=== PATIENT | male | born 1960 | race Caucasian/White ===

== ENCOUNTER 2018-03-20 09:05 | Day surgery (SDC) | payer MEDICARE ==
[~2018-03-20 09:05] MED LIST: ACETAMINOPHEN 1,000 MG/100 ML BTL IV ONE; FAMOTIDINE 20MG TABLET PO ONE; MECLIZINE 25 MG TABLET PO ONE; METOCLOPRAMIDE 10 MG TABLET PO ONE; VANCOMYCIN HCL 1,000 MG in DEXTROSE 5 % IN WATER 250 ML IVPB ONE
[2018-03-20] MEDS ORDERED: MIDAZOLAM HCL 2MG/2ML VIAL IV ONE (09:06)
[2018-03-20] MEDS ORDERED: HYDROMORPHONE HCL 2 MG/ML VIAL IV ONE (09:06)
[2018-03-20] MEDS ORDERED: PROPOFOL 10 MG/ML VIAL IV ONE (09:06)
[2018-03-20] MEDS ORDERED: BUPIVACAINE 0.5% W/EPI MPF 30 ML VIAL IVP ONE (09:06)
[2018-03-20] MEDS ORDERED: LIDOCAINE 1% MDV (10MG/ML) 20ML VIAL SQ ONE (09:06)
[2018-03-20] MEDS ORDERED: *PACU ONLY* KETAMINE HCL 10 MG/ML (20ML) VIAL IV ONE (09:06)
[2018-03-20] MEDS ORDERED: FENTANYL PF 100MCG/2ML VIAL IV ONE (09:06)
[2018-03-20] MEDS ORDERED: LIDOCAINE 1% W/EPI 1:200,000 MPF 30ML SQ ONE (09:06)
--- NOTE | 2018-03-20 16:31 | Operative Note - Ferro ---
DATE OF SURGERY: 03/20/18 PREOPERATIVE DIAGNOSES: 1. 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 2. SPINAL CORD STIMULATOR INTERNAL TWO-LEAD MEDTRONIC WITH BATTERY DEPLETION. OPERATION: FLUOROSCOPICALLY-GUIDED INCISION, SUBCUTANEOUS DISSECTION REMOVAL AND REPLACEMENT OF AN INTERNAL PULSE GENERATOR BATTERY COMBINATION AT LEFT POSTERIOR GLUTEAL MARGIN. SURGEON: DARIN VIGIL D.O. ANESTHESIA: LOCAL SEDATION. ANESTHESIA PROVIDER: BOBY HAYNES CRNA INDICATION: This patient presents with a two-lead spinal cord stimulator internal generator. Over the last number of months, there has been malfunction with eventual disruption of stimulation patterns. Assessment of the generator by way of computer evaluation demonstrated battery depletion and failure. He is here for battery replacement. PROCEDURE: Intravenous line, vital sign monitoring, IV sedation, prepped and draped sterile technique. The spinal cord stimulator internal generator at the left posterior gluteal margin incisional site identified, marked, infiltrated, incision made, and subcutaneous dissection was conducted to the pulse generator , which was exteriorized and then from the indwelling leads. A new generator Med[employer]onic Programmable Rechargeable was then placed onto the field and interfaced with the indwelling leads. Antibiotic irrigation. Bovie for hemostasis. The generator was placed into the existing pouch, secured to the posterior fascia with nonabsorbable suture, and then the incision was closed with STRATAFIX 2-0 for the fascia and 3-0 subcuticular. The patient was transported to the Recovery Room stable after the Dermabond dressing was placed to interface the incisional lines. He was transported stable, no side-effects from the procedure or the sedation. When fully awake and alert, complex programming was then performed reconfirming stimulation patterns. He was prepared for discharge. DISCHARGE INSTRUCTIONS: 1. Sites will remain clean and dry. No showering or bathing in any way that would disrupt dressings. If it happens, contact the clinic. 2. Standard medications resumed including Levaquin, the antibiotic, 500 mg once a day for 14 days. 3. The office will contact the patient at home in the next 24-48 hours to discuss an appointment in 7-10 days to evaluate the incisional site. Until then , he is to keep his activities low. He was then discharged. cc: Dr. Kaden Aragon JOB NUMBER: [id number] [facility]
== END 2018-03-20 14:05 | disposition home or self-care (01) ==
LOC: SUR 09:05
PROVIDERS: ATTEND Pain Medicine Interventional Pain Medicine
DX: M96.1 Postlaminectomy syndrome, not elsewhere classified (principal); M54.16 Radiculopathy, lumbar region; M54.17 Radiculopathy, lumbosacral region; R51 Headache
CPT/HCPCS: 63685; 00300; 85002; J3370; J3010; J1170; C1787; C1820; J7060

== ENCOUNTER 2018-10-17 07:32 | Day surgery (SDC) | payer MEDICARE ==
[~2018-10-17 07:32] MED LIST changes: -FAMOTIDINE 20MG TABLET PO ONE; -MECLIZINE 25 MG TABLET PO ONE; -METOCLOPRAMIDE 10 MG TABLET PO ONE; -VANCOMYCIN HCL 1,000 MG in DEXTROSE 5 % IN WATER 250 ML IVPB ONE
[2018-10-17] MEDS ORDERED: HYDROCODONE/APAP 7.5/325MG TABLET PO ONE (07:33)
[2018-10-17] MEDS ORDERED: SEVOFLURANE 250 ML INH ONE (07:33)
[2018-10-17] MEDS ORDERED: PROPOFOL 10 MG/ML VIAL IV ONE (07:33)
[2018-10-17] MEDS ORDERED: KETOROLAC 30 MG/ML VIAL IVP ONE (07:33)
[2018-10-17] MEDS ORDERED: KETAMINE HCL 100MG/1ML VIAL INJ ONE (07:33)
[2018-10-17] MEDS ORDERED: LIDOCAINE 2% MDV (20MG/ML) 20ML VIAL IV ONE (07:33)
--- NOTE | 2018-10-18 09:50 | Operative Note ---
DATE OF SURGERY: 10/17/2018 Surgeon: Yoav Mahmood DO PREOPERATIVE DIAGNOSIS: Trigger finger of the right little finger. POSTOPERATIVE DIAGNOSIS: Trigger finger of the right little finger. OPERATION: Tenotomy A1 larisa of right little finger using 3.5 loop magnification. DESCRIPTION OF PROCEDURE: This 58-year-old male was taken to the operating room and placed in the supine position on the operating room table. General anesthetic was administered. The right upper extremity was elevated, prepped with Hibiclens, and draped in the usual sterile fashion. It was exsanguinated and the tourniquet inflated to 250 mmHg. A palmar incision was utilized overlying the proximal edge of the A1 larisa to the right little finger. Dissection was carried down through the skin and subcutaneous tissue. Marked thickening of the tenosynovium was noted over the flexor tendon of the little finger. The proximal edge of the A1 larisa easily identified and split under direct vision to its distal margin. Because of the extreme thickening of the tenosynovium, this was also split in line with the flexor to completely free the tendon. It was then taken through range of motion and no impingement or catching was identified. There was a nodularity in the tendon which did not interfere then with range of motion and no catching or locking was identified. The wound was irrigated with lactated Ringer's solution. Hemostasis was obtained with the electrocautery. The wound was closed with interrupted 6-0 nylon suture. Sterile dressings applied and the patient taken to the recovery room in satisfactory condition. GROSS PATHOLOGY: This patient demonstrated trigger finger of the right little finger as described. CC: DO PABLO Parikh
== END 2018-10-17 10:05 | disposition home or self-care (01) ==
LOC: SUR 07:32
PROVIDERS: ATTEND Orthopaedic Surgery
DX: M65.351 Trigger finger, right little finger (principal)
CPT/HCPCS: 26055; 01810; J1885; J3490

== ENCOUNTER 2019-09-18 09:26 | Day surgery (SDC) | payer MEDICARE ==
[~2019-09-18 09:26] MED LIST changes: -ACETAMINOPHEN 1,000 MG/100 ML BTL IV ONE; +ACETAMINOPHEN 1,000 MG/100 ML BTL IVPB ONE
[2019-09-18] MEDS ORDERED: ONDANSETRON HCL IV 4 MG/2 ML VIAL IVP ONE (09:27)
[2019-09-18] MEDS ORDERED: LIDOCAINE 2% MDV (20MG/ML) 20ML VIAL IV ONE (09:27)
[2019-09-18] MEDS ORDERED: MIDAZOLAM HCL 2MG/2ML VIAL IV ONE (09:27)
[2019-09-18] MEDS ORDERED: PROPOFOL 10 MG/ML VIAL IV ONE (09:27)
[2019-09-18] MEDS ORDERED: DEXAMETHASONE 4 MG/ML 1ML VIAL IVP ONE (09:27)
[2019-09-18] MEDS ORDERED: SEVOFLURANE 250 ML INH ONE (09:27)
[2019-09-18] MEDS ORDERED: FENTANYL PF 100MCG/2ML VIAL IV ONE (09:27)
[2019-09-18] MEDS ORDERED: RINGERS SOLUTION,LACTATED 1,000 ML IV ONE (10:00)
[2019-09-18] MEDS ORDERED: BUPIVACAINE 0.25% W/EPI MPF 30ML VIAL SQ ONE (11:29)
--- NOTE | 2019-09-18 13:58 | Operative Note ---
DATE OF SURGERY: 09/18/2019 SURGEON: Yoav Mahmood D.O. REFERRING PHYSICIAN: Kaden Aragon D.O. PREOPERATIVE DIAGNOSIS: 1. TORN MEDIAL MENISCUS OF THE RIGHT KNEE. 2. CHONDROMALACIA OF THE RIGHT KNEE. POSTOPERATIVE DIAGNOSIS: 1. TORN MEDIAL AND LATERAL MENISCUS OF THE RIGHT KNEE. 2. CHONDROMALACIA OF THE MEDIAL FEMORAL CONDYLE, LATERAL FEMORAL CONDYLE, LATERAL TIBIAL PLATEAU, PATELLA AND TROCHLEA RIGHT KNEE. OPERATION: 1. ARTHROSCOPIC PARTIAL MEDIAL AND LATERAL MENISCECTOMY RIGHT KNEE. 2. ARTHROSCOPIC CHONDROPLASTY OF THE TROCHLEA, LATERAL FEMORAL CONDYLE, AND LATERAL TIBIAL PLATEAU RIGHT KNEE. DESCRIPTION: This 59-year-old male was taken to the Operating Room and placed in the supine position on the operating room table. General anesthetic was administered and the right lower extremity was elevated, exsanguinated, and the tourniquet placed on the proximal thigh was elevated to 250 mmHg. The arthroscopic knee vergara was applied, the knee prepped with Hibiclens, and draped in the usual sterile fashion. 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 This lesion had loose flaps of articular cartilage present and the rotating shaver was used to resect unstable fragments of the articular cartilage there. This lesion was approximately 1.5 cm x 1 cm in width in the center of the trochlea. The medial compartment was entered and an area of Grade 2 chondromalacia which is very mild was present on the medial aspect of the medial femoral condyle again about 1 cm x 0.75 cm, but no loose fragments of articular cartilage were present and it was not further disturbed. There was, however, a small tear of the root of the medial meniscus and utilizing the basket forceps and rotating shaver we resected unstable fragments of the meniscus and reprobed it to confirm restored stability to the posterior horn of the medial meniscus. The intracondylar notch was examined and found to be normal. The lateral compartment was entered and extensive tearing of the lateral meniscus was present. There was fraying from the anterior horn all the way around to about the 10:00 o'clock position and this was debrided with a rotating shaver, but there was also a tear of the root of the lateral meniscus and some degenerative changes and horizontal cleavage tears at about the 10:00 o'clock position and this was resected with the basket forceps and then we made a smooth contoured surfaced and resected as much of the torn lateral root as was necessary. We further smoothed, trimmed and balanced this lateral meniscus with the rotating shaver. It was reprobed and confirmed to be stable. There was extensive degenerative disease of the center of the weight bearing surface of the lateral femoral condyle with a severe Grade 3 lesion being noted in the center of the weight bearing surface which is about 1.5 cm to 2 cm in greatest dimension. The disruption of the articular cartilage extended more towards the lateral side as well and this tapered off to a Grade 2 change in that location. The joint was then copiously irrigated, there was some degenerative change of the lateral tibial plateau, this was debrided with a rotating shaver as well. The joint was suctioned and the instruments were removed after all areas had been reexamined. The portals were closed with 4-0 nylon suture, sterile dressings were applied, and the puncture site was infiltrated with 0.25% Marcaine with Epinephrine. Sterile dressings were applied. The patient was taken to the Recovery Room in satisfactory condition. GROSS PATHOLOGY: There was Grade 2 chondromalacia of the patella, Grade 2 of the trochlea, Grade 3 of the center of the weight bearing surface of the lateral femoral condyle, Grade 2 of the medial femoral condyle, and Grade 2 of the lateral tibial plateau. There was root tears of both the medial and lateral meniscus as well as degenerative tearing of the remainder of the lateral meniscus all the way around to the anterior horn, but after completion of resection of unstable fragments the meniscus was stable. JOB NUMBER: [id number] [facility]
== END 2019-09-18 12:25 | disposition home or self-care (01) ==
LOC: SUR 09:26
PROVIDERS: ATTEND Orthopaedic Surgery
DX: S83.241A Other tear of medial meniscus, current injury, right knee, initial encounter (principal); S83.281A Other tear of lateral meniscus, current injury, right knee, initial encounter; M94.261 Chondromalacia, right knee; F31.9 Bipolar disorder, unspecified
CPT/HCPCS: 29880; 01400; J2405; J3010; J7120